=== PATIENT | male | born 1990 | race American Indian/Alaskan Native ===

== ENCOUNTER 2016-11-17 20:06 | Emergency (ER) | payer MEDICAID ==
[2016-11-17 21:10] LABS: Mean Corpuscular HGB Conc 31 % (32-34); Mean Corpuscular Volume 74 fl (84-94); Red Cell Distribution Width 15.4 % (13.2-15.2)
[2016-11-17 21:21] LABS: Alanine Aminotransferase 10 units/L (7-56); Albumin 4.8 g/dL (3.9-5); Albumin/Globulin Ratio 1.3 %; Alkaline Phosphatase 130 units/L (35-129); Anion Gap 22 mmol/L; Blood Urea Nitrogen 21 mg/dL (9-20); Calcium 9.2 mg/dL (8.4-10.2); Carbon Dioxide 20 mmol/L (22-30); Chloride 105.8 mmol/L (98-107); Glucose 103 mg/dL (75-100); Lipase 33 units/L (13-60); Potassium 3.9 mmol/L (3.6-5.0); Sodium 144 mmol/L (137-145); Total Protein 8.4 g/dL (6.3-8.2)
[2016-11-17 21:26] LABS: Platelet Count 183 K/mm3 (140-440); Red Blood Count 6.99 M/mm3 (3.65-5.03); White Blood Count 11.2 K/mm3 (4.5-11.0)
[2016-11-17 21:36] LABS: Hematocrit 51.7 % (35.5-45.6); Hemoglobin 16.2 gm/dl (11.8-15.2); Mean Corpuscular Hemoglobin 23 pg (28-32)
[2016-11-17 23:39] LABS: Anisocytosis 1+; Basophils % (Manual) 0 % (0.0-1.8); Blastocytes % (Manual) 0 %; Diff Status Complete; Eosinophils % (Manual) 0 % (0.0-4.3); Platelet Estimate Consistent w Auto
[2016-11-18 00:23] LABS: Bilirubin,Urine NEG (Negative); Blood,Urine NEG (Negative); Ketones,Urine TR mg/dL (Negative); Leukocyte Esterase,Urine NEG (Negative); Mucus,Urine 3+ /HPF; Nitrite,Urine NEG (Negative); Urobilinogen,Urine < 2.0 mg/dL (<2.0)
[2016-11-18] MEDS ORDERED: NACL 0.9% 1000 ML 1,000 ML ONE (02:28)
[2016-11-18] MEDS ORDERED: NACL 0.9% 1000 ML 1,000 ML IV ONE ×2 (02:38→06:36)
--- NOTE | 2016-11-18 06:23 | Emergency Department Report ---
ED Abdominal Pain HPI - General Chief Complaint: Abdominal Pain Stated Complaint: ABD PAIN Time Seen by Provider: 11/18/16 06:20 Source: patient Mode of arrival: Ambulatory Limitations: No Limitations - History of Present Illness Initial Comments: The patient has had nausea vomiting diarrhea for the past 2-3 days. Mother is daycare worker. She is here the patient. His fluid intake has been poor. He has not been complaining of any significant abdominal pain. He denies abdominal pain now. He's had a previous craniotomy but is able to answer questions amply. He states he is ready to go home. -: Gradual, days(s) Radiation: other (may have had some crampy abdominal pain prior but denies this now) Quality: cramping Consistency: now resolved Improves With: nothing Worsens With: nothing Context: other (none of the above) Associated Symptoms: denies other symptoms, nausea, vomiting, diarrhea - Related Data Home Medications Medication Instructions Recorded Confirmed Last Taken Levothyroxine Nicu (10 Mcg/ml) 0.25 mcg PO QDAY 08/09/14 08/09/14 Unknown [Synthroid Nicu] Omeprazole [Omeprazole] 40 mg PO DAILY 08/09/14 08/09/14 Unknown Previous Rx's Medication Instructions Recorded Last Taken Type Ondansetron [Zofran Odt] 4 mg PO Q8HR #7 tab.rapdis 11/18/16 Unknown Rx Sulfamethoxazole/Trimethoprim 1 each PO BID #14 tablet 11/18/16 Unknown Rx [Bactrim DS TAB] Allergies Allergy/AdvReac Type Severity Reaction Status Date / Time No Known Allergies Allergy Unverified 08/09/14 11:12 ED Review of Systems ROS: Stated complaint: ABD PAIN Other details as noted in HPI Constitutional: denies: chills, fever Eyes: denies: eye pain, eye discharge, vision change ENT: denies: ear pain, throat pain Respiratory: denies: cough, shortness of breath, wheezing Cardiovascular: denies: chest pain, palpitations Endocrine: no symptoms reported Gastrointestinal: as per HPI Genitourinary: denies: urgency, dysuria Musculoskeletal: denies: back pain, joint swelling, arthralgia Skin: denies: rash, lesions Neurological: denies: headache, weakness, paresthesias Psychiatric: denies: anxiety, depression Hematological/Lymphatic: denies: easy bleeding, easy bruising ED Past Medical Hx - Past Medical History Hx GERD: Yes Additional medical history: erosive esopagitis,autism - Social History Smoking Status: Never Smoker Substance Use Type: None - Medications Home Medications: Home Medications Medication Instructions Recorded Confirmed Last Taken Type Levothyroxine Nicu (10 Mcg/ml) 0.25 mcg PO QDAY 08/09/14 08/09/14 Unknown History [Synthroid Nicu] Omeprazole [Omeprazole] 40 mg PO DAILY 08/09/14 08/09/14 Unknown History Ondansetron [Zofran Odt] 4 mg PO Q8HR #7 tab.rapdis 11/18/16 Unknown Rx Sulfamethoxazole/Trimethoprim 1 each PO BID #14 tablet 11/18/16 Unknown Rx [Bactrim DS TAB] ED Physical Exam - General Limitations: No Limitations General appearance: alert - Head Head exam: Present: other (healed craniotomy scar on the left) - Eye Eye exam: Present: normal appearance, PERRL, EOMI. Absent: scleral icterus - ENT ENT exam: Present: mucous membranes moist - Neck Neck exam: Present: normal inspection. Absent: tenderness, meningismus - Respiratory Respiratory exam: Present: normal lung sounds bilaterally. Absent: respiratory distress, wheezes, rales, rhonchi, stridor - Cardiovascular Cardiovascular Exam: Present: regular rate, normal rhythm. Absent: systolic murmur, diastolic murmur, rubs, gallop - GI/Abdominal GI/Abdominal exam: Present: soft, normal bowel sounds. Absent: distended, tenderness, guarding, rebound, rigid - Neurological Exam Neurological exam: Present: alert, other (no acute focal deficit) - Psychiatric Psychiatric exam: Present: normal mood, flat affect - Skin Skin exam: Present: warm, dry, intact, normal color. Absent: rash ED Course Vital Signs 11/17/16 11/18/16 11/18/16 20:32 03:54 06:00 Temperature 97.8 F 99.1 F 98 F Pulse Rate 94 H 76 69 Respiratory 18 20 18 Rate Blood Pressure 110/71 Blood Pressure 114/78 110/68 [Left] O2 Sat by Pulse 100 100 100 Oximetry 11/18/16 07:14 Temperature Pulse Rate Respiratory 16 Rate Blood Pressure Blood Pressure [Left] O2 Sat by Pulse Oximetry - Reevaluation(s) Reevaluation #1: Patient is given IV fluid. He stated he felt ready to go home. His vital signs are stable. He does have a primary care physician. Follow-up is encouraged. Return criteria are discussed. 11/18/16 09:03 ED Medical Decision Making - Lab Data Result diagrams: 11/17/16 20:43 11/17/16 20:43 Laboratory Results - last 24 hr 11/17/16 11/17/16 11/17/16 20:43 20:43 23:39 WBC 11.2 H RBC 6.99 H Hgb 16.2 H Hct 51.7 H MCV 74 L MCH 23 L MCHC 31 L RDW 15.4 H Plt Count 183 Add Manual Diff Complete Total Counted 100 Seg Neuts % (Manual) 83.0 H Band Neutrophils % 1.0 Lymphocytes % (Manual) 10.0 L Reactive Lymphs % (Man) 0 Monocytes % (Manual) 6.0 Eosinophils % (Manual) 0 Basophils % (Manual) 0 Metamyelocytes % 0 Myelocytes % 0 Promyelocytes % 0 Blast Cells % 0 Nucleated RBC % Not Reportable Seg Neutrophils # Man 9.3 H Band Neutrophils # 0.1 Lymphocytes # (Manual) 1.1 L Abs React Lymphs (Man) 0.0 Monocytes # (Manual) 0.7 Eosinophils # (Manual) 0.0 Basophils # (Manual) 0.0 Metamyelocytes # 0.0 Myelocytes # 0.0 Promyelocytes # 0.0 Blast Cells # 0.0 WBC Morphology Not Reportable Hypersegmented Neuts Not Reportable Hyposegmented Neuts Not Reportable Hypogranular Neuts Not Reportable Smudge Cells Not Reportable Toxic Granulation Not Reportable Toxic Vacuolation Not Reportable Dohle Bodies Not Reportable Pelger-Huet Anomaly Not Reportable Carter Rods Not Reportable Platelet Estimate Consistent w auto Clumped Platelets Not Reportable Plt Clumps, EDTA Not Reportable Large Platelets Not Reportable Giant Platelets Not Reportable Platelet Satelliting Not Reportable Plt Morphology Comment Not Reportable RBC Morphology Not Reportable Dimorphic RBCs Not Reportable Polychromasia Not Reportable Hypochromasia Not Reportable Poikilocytosis Not Reportable Anisocytosis 1+ Microcytosis Not Reportable Macrocytosis Not Reportable Spherocytes Not Reportable Pappenheimer Bodies Not Reportable Sickle Cells Not Reportable Target Cells Not Reportable Tear Drop Cells Not Reportable Ovalocytes Not Reportable Helmet Cells Not Reportable [place] Bodies Not Reportable [place] Rings Not Reportable [place] Cells Not Reportable Bite Cells Not Reportable Crenated Cell Not Reportable Elliptocytes Not Reportable Acanthocytes (Spur) Not Reportable Rouleaux Not Reportable Hemoglobin C Crystals Not Reportable Schistocytes Not Reportable Malaria parasites Not Reportable Logan Bodies Not Reportable Hem Pathologist Commnt No Sodium 144 Potassium 3.9 Chloride 105.8 Carbon Dioxide 20 L Anion Gap 22 BUN 21 H Creatinine 1.0 Estimated GFR > 60 BUN/Creatinine Ratio 21.00 Glucose 103 H Calcium 9.2 Total Bilirubin 2.0 H AST 15 ALT 10 Alkaline Phosphatase 130 H Total Protein 8.4 H Albumin 4.8 Albumin/Globulin Ratio 1.3 Lipase 33 Urine Color [place] Urine Turbidity Clear Urine pH 5.0 Ur Specific [place] 1.034 H Urine Protein 100 mg/dl Urine Glucose (UA) Neg Urine Ketones Tr Urine Blood Neg Urine Nitrite Neg Urine Bilirubin Neg Urine Urobilinogen < 2.0 Ur Leukocyte Esterase Neg Urine WBC (Auto) 29.0 H Urine RBC (Auto) 4.0 U Epithel Cells (Auto) 1.0 Hyaline Casts 5 Urine Mucus 3+ - Medical Decision Making Pyuria noted Critical care attestation.: If time is entered above; I have spent that time in minutes in the direct care of this critically ill patient, excluding procedure time. ED Disposition Clinical Impression: Volume depletion Diarrhea Qualifiers: Diarrhea type: unspecified type Qualified Code(s): R19.7 - Diarrhea, unspecified UTI (urinary tract infection) Qualifiers: Urinary tract infection type: site unspecified Hematuria presence: without hematuria Qualified Code(s): N39.0 - Urinary tract infection, site not specified Disposition: DISCHARGED TO HOME OR SELFCARE Is pt being admited?: No Does the pt Need Aspirin: No Condition: Stable Instructions: Acute Diarrhea (ED), Dehydration (ED), Urinary Tract Infection in Men (ED) Additional Instructions: There was some suggestion of a urinary infection so we gave an antibiotic here in the emergency department. Follow-up on the urine culture test which will take 2 days to result. Follow-up with the primary care provider. Return fever chills or worsening symptoms as needed. Encourage fluids. Prescriptions: Ondansetron [Zofran Odt] 4 mg PO Q8HR #7 tab.rapdis Sulfamethoxazole/Trimethoprim [Bactrim DS TAB] 1 each PO BID #14 tablet Referrals: PRIMARY CARE, [Primary Care Provider] - 2-3 Days Time of Disposition: 09:06
[2016-11-18] MEDS ORDERED: ROCEPHIN/NS 1 GM/50 ML 1 GM/50 ML BAG IV ONE (09:30)
[2016-11-18 10:08] VITALS: BP 124/76
== END 2016-11-18 10:33 | disposition home or self-care (01) ==
LOC: ED 20:06
DX: E86.0 Dehydration (principal); R19.7 Diarrhea, unspecified; N39.0 Urinary tract infection, site not specified; K21.9 Gastro-esophageal reflux disease without esophagitis
CPT/HCPCS: 36415; 80053; 81001; 83690; 85007; 85025; 87086; 96361; 96365; 99283; J0696; J7030